=== PATIENT | female | born 1945 | race Caucasian/White ===

== ENCOUNTER → 2019-06-25 16:01 | Outpatient (CLI) | payer MEDICARE, OTHER, BC, SELFPAY ==
--- NOTE | 2019-06-25 16:14 | DI.ECHO.S_ITS ---
[facility]---------+ [facility] +---------+ : : [address] [place] : : : : [id number] : : : : Phone: [phone]+ Echocardiogram Report + + :Name: KYLIE GARCIA Study Date: 06/25/2019 Height: 60 in : :[facility] Weight: 170 lb : : Gender: Female BSA: 1.7 m2 : :: 1945 Age: 73 yrs BP: 150/78 mmHg: :Reason For Study: DYSPNEA : : Performed By: Carol West : :Referring: YUNIEL GARCIA A : + + Interpretation Summary The left ventricle is normal in size. Left ventricular wall thickness is mildly increased. The left ventricular ejection fraction is normal. Left ventricular wall motion is normal. Diastolic parameters suggest a relaxation abnormality of the left ventricle, consistent with probable normal filling pressures. The right ventricle is normal in size and function. The right ventricular systolic pressure is estimated to be at least 22 mmHg based on an estimated right atrial pressure of 3 mm Hg. The left atrium is mildly dilated. There is mild to moderate aortic regurgitation. -Etiology of dyspnea could not be determined based on this echocardiogram. Mild changes related to hypertensive heart disease were noted. -No prior echocardiogram for comparison. Procedure: A two-dimensional transthoracic echocardiogram with color flow and Doppler was performed. The study quality was technically adequate. There is no prior echocardiogram noted for this patient. The patient was in normal sinus rhythm during the exam. The heart rate ranged between 63-69 bpm during the study. Left Ventricle: The left ventricle is normal in size. Left ventricular wall thickness is mildly increased. The ejection fraction is estimated to be 60- 65%. The left ventricular ejection fraction is normal. Left ventricular wall motion is normal. Diastolic parameters suggest a relaxation abnormality of the left ventricle, consistent with probable normal filling pressures. Right Ventricle: The right ventricle is normal in size and function. Atria: The left atrium is mildly dilated. The right atrium is normal in size. There is no Doppler evidence for an interatrial shunt. Mitral Valve: The mitral valve is normal in structure and function. There is trace mitral regurgitation. Aortic Valve: The aortic valve is trileaflet. The aortic valve opens well. There is no aortic valve stenosis. There is mild to moderate aortic regurgitation. Tricuspid Valve: The tricuspid valve is normal in structure and function. There is mild tricuspid regurgitation. The right ventricular systolic pressure is estimated to be at least 22 mmHg based on an estimated right atrial pressure of 3 mm Hg. Pulmonic Valve: The pulmonic valve is normal in structure and function. There is mild pulmonic regurgitation. Great Vessels: The aortic root is normal size. The dimensions of the ascending aorta are normal. The IVC is of normal diameter and collapses greater than 50% with a sniff. This suggests a low right atrial pressure of 3 mm Hg. Pericardium/ Pleura There is no pericardial effusion. There is no pleural effusion. MMode/2D Measurements & Calculations LVIDd: 4.4 cm LVOT diam: 2.3 cm LVIDs: 3.1 cm Ao root diam: 2.9 cm FS: 29.2 % asc Aorta Diam: 3.1 cm EPSS: 0.52 cm Ao Arch Diam (Prox Trans): 2.6 cm IVSd: 0.99 cm LVPWd: 1.0 cm LV haji. diameter/BSA (cm/m^2): 2.5 LV sys. diameter/BSA (cm/m^2): 1.8 LA A2 area: 25.5 cm2 RA long axis: 5.5 cm LA A4 area: 20.2 cm2 RA area: 18.4 cm2 LA length (vol): 5.8 cm RA vol: 52.3 ml LA vol: 74.7 ml RA : 30.0 ml/m2 LA vol index: 42.9 ml/m2 IVC diam: 1.2 cm RVD1 (basal): 3.7 cm TAPSE: 2.4 cm Doppler Measurements & Calculations Ao V2 max: 142.6 cm/sec LVOT Max Efra: 89.6 cm/sec Ao V2 mean: 93.7 cm/sec LV V1 max P.2 mmHg Ao max P.1 mmHg LV V1 VTI: 22.0 cm Ao mean P.1 mmHg DUONG(I,D): 3.1 cm2 Ao V2 VTI: 29.6 cm DUONG(V,D): 2.6 cm2 sev ratio: 0.74 DUONG indexed to BSA (cm^2/m^2): 1.8 AI P1/2t: 608.5 msec AI dec slope: 227.0 cm/sec2 MV E max efra: 64.7 cm/sec TR max efra: 221.9 cm/sec MV A max efra: 74.6 cm/sec TR max P.7 mmHg MV E/A: 0.87 PA V2 max: 78.1 cm/sec Med Peak E' Efra: 6.4 cm/sec PA V2 mean: 57.9 cm/sec E/E' med: 10.1 PA mean P.4 mmHg Lat Peak E' Efra: 7.1 cm/sec E/E' lat: 9.1 E/e' average: 9.6 MV dec time: 0.25 sec SV(OT): 90.9 ml Electronically signed by: Son Nguyen M.D. on Reading Physician:06/26/2019 12:04 PM
== END ==
PROVIDERS: PCP Family Medicine; Referring Provider Family Medicine; Visit Provider Family Medicine
DX: I08.2 Rheumatic disorders of both aortic and tricuspid valves (principal); R06.09 Other forms of dyspnea
CPT/HCPCS: 93306

== ENCOUNTER → 2019-11-26 13:05 | Outpatient (CLI) | payer MEDICARE, OTHER, BC, SELFPAY ==
--- NOTE | 2019-11-26 | DI.CT.S_ITS ---
PROCEDURE: CT CHEST WO CON INDICATIONS: Mild persistent asthma, uncomplicated TECHNIQUE: Noncontrast 5 mm thick sections acquired from the pulmonary apices to the posterior costophrenic angles. 1 mm lung window, 5 mm thick coronal and sagittal and 7 mm axial MIP reformats were then acquired. For radiation dose reduction, the following was used: automated exposure control, adjustment of mA and/or kV according to patient size. COMPARISON: [facility], CT, CT SOFT TISSUE NECK WO CON, 11/26/2019, 13:28. FINDINGS: Image quality: Excellent. Lungs and pleura: No significant acute air space opacities. A small pulmonary cyst in the right lower lobe. Right major fissure pulmonary nodule measuring 0.5 x 0.4 cm, (2/92). This may represent an intrapulmonary lymph node. Punctate nodule along the right minor fissure, (2/143). Mild scarring or atelectasis in the right lower lobe adjacent to the hiatal hernia. No pleural effusions or pneumothorax. Central and peripheral airways are patent and normal in caliber. Mediastinum: Heart size is normal. No pericardial effusion. No mediastinal adenopathy by size criteria. Thoracic aorta and central pulmonary arteries are normal in size. Esophagus is normal in caliber. The entire stomach is located in the thoracic cavity. Bones and chest wall: No suspicious bony lesions. No vertebral body compression fractures. No axillary or supraclavicular adenopathy by size criteria. A small hypodense left thyroid nodule measuring 0.8 cm, (4/7). Abdomen: Well-circumscribed hypodense focus in the right lobe of the liver which has the appearance of a benign cyst. Visualized upper abdominal solid organs and bowel loops appear normal in the absence of contrast. IMPRESSION: 1. No acute airspace opacity. 2. Small fissural pulmonary nodules in the right lung measuring 5 mm or less. These may represent small intrapulmonary lymph nodes. -If the patient is high risk for lung cancer i.e. Smoking history, consider follow-up CT chest. 3. Subcentimeter left thyroid nodule. 4. Large hiatal hernia with the entire stomach in the thoracic cavity. Dictated by: Say Wilcox M.D. on 11/26/2019 at 16:11 Approved by: Say Wilcox M.D. on 11/26/2019 at 16:21
--- NOTE | 2019-11-26 | DI.CT.S_ITS ---
PROCEDURE: CT SOFT TISSUE NECK WO CON INDICATIONS: Mild persistent asthma, uncomplicated TECHNIQUE: Non-contrast 3.0 mm axial sections acquired from the sella to the aortic arch. Additional oblique axial 3.0 mm sections acquired through the pharynx. 3 mm thick coronal and sagittal reformats were generated. For radiation dose reduction, the following was used: automated exposure control. COMPARISON: None. FINDINGS: Image quality: Excellent. Lymph nodes: No enlarged lymph nodes seen throughout the neck. Vessels: Non-opacified vessels appear normal in caliber. Neck spaces: There is a mild right-sided soft tissue asymmetric appearance at the level of the uvula. The vocal cords, false vocal cords, pyriform sinuses, epiglottis, vallecula, and tongue base all appear normal. Extramucosal spaces appear unremarkable. Glands: The parotid and submandibular glands appear normal, without stones. Thyroid gland demonstrates a 10 mm low-attenuation focus in the left lobe. No priors are available for comparison. Miscellaneous: Visualized brain and orbits appear normal. Lung apices appear clear. Superficial soft tissues appear normal. IMPRESSION: 1. Mild soft tissue asymmetric prominence at the level of the uvula. Exam is somewhat limited secondary to lack of IV contrast. Further evaluation with direct visualization is recommended, as mass cannot be excluded. Dictated by: Lory Hampton M.D. on 11/26/2019 at 16:13 Approved by: Lory Hampton M.D. on 11/26/2019 at 16:16
== END ==
PROVIDERS: PCP Family Medicine; Referring Provider Internal Medicine; Visit Provider Internal Medicine
DX: J45.30 Mild persistent asthma, uncomplicated (principal); R06.00 Dyspnea, unspecified; K44.9 Diaphragmatic hernia without obstruction or gangrene; R91.8 Other nonspecific abnormal finding of lung field; E04.1 Nontoxic single thyroid nodule
CPT/HCPCS: 70490; 71250

== ENCOUNTER → 2020-06-02 12:59 | Outpatient (CLI) | payer MEDICARE, OTHER, BC, SELFPAY ==
--- NOTE | 2020-06-02 14:50 | DI.CT.S_ITS ---
PROCEDURE: CT CHEST WO CON INDICATIONS: Diaphragmatic hernia without obstruction TECHNIQUE: Noncontrast 5 mm thick sections acquired from the pulmonary apices to the posterior costophrenic angles. 1 mm lung window, 5 mm thick coronal and sagittal and 7 mm axial MIP reformats were then acquired. For radiation dose reduction, the following was used: automated exposure control, adjustment of mA and/or kV according to patient size. COMPARISON: [facility], CT, CT CHEST WO CON, 11/26/2019, 13:28. FINDINGS: Image quality: Excellent. Lungs and pleura: No acute air space opacities. No pleural effusions or pneumothorax. Central and peripheral airways are patent and normal in caliber. Mediastinum: Heart size is normal. No pericardial effusion. No mediastinal adenopathy by size criteria. Thoracic aorta and central pulmonary arteries are normal in size. Esophagus is normal in caliber. There is a very large hiatal hernia with morphology of the stomach suggestive of gastric inversion with the greater curvature of the stomach directed cephalad. No gastric torsion is suspected, given absence of mural edema or adjacent edema in the soft tissues through the area of herniation. The gastric hernia traverses from midline to right into the posterior lower chest, and there is no sign of gastric retention of fluid or debris.. Bones and chest wall: No suspicious bony lesions. No vertebral body compression fractures. No axillary or supraclavicular adenopathy by size criteria. Thyroid gland appears normal where well seen. . Abdomen: Visualized upper abdominal solid organs and bowel loops appear normal in the absence of contrast. IMPRESSION: Gastric inversion through a large hiatal hernia with much of the gastric parenchyma within the right lower chest. The morphology of the stomach suggest gastric inversion with the greater curvature of the stomach directed cephalad. No sign of gastric torsion. Little if any change from the comparison study 11/26/19. Dictated by: Mino Hewitt M.D. on 06/02/2020 at 16:10 Approved by: Mino Hewitt M.D. on 06/02/2020 at 16:13
== END ==
PROVIDERS: PCP Family Medicine; Referring Provider Family Medicine; Visit Provider Family Medicine
DX: K44.9 Diaphragmatic hernia without obstruction or gangrene (principal)
CPT/HCPCS: 71250